=== PATIENT | male | born 1965 | race Caucasian/White ===

== ENCOUNTER 2019-11-15 19:10 | Emergency (ER) | payer SELFPAY ==
[~2019-11-15] VITALS: Ht 180.3 cm; Wt 85.7 kg
[2019-11-15 19:17] VITALS: BP 137/90
--- NOTE | 2019-11-15 19:19 | NUR ---
TO LOBBY A/W BED AMBULATORY
--- NOTE | 2019-11-15 20:10 | NUR ---
pt ambulated to bed 12
--- NOTE | 2019-11-15 20:24 | NUR ---
54 Y/O MALE PRESENTS TO ED, C/O LEFT SIDE TOOTHACHE. PT STATES PAIN STARTED 4 DAYS AGO, 8/10 PAIN SCALE; DOES NOT RADIATE. PT DENIES TAKING ANY MEDICATIONS PRIOR COMING TO ED. NO SOB/DIFFICULTY BREATHING NOTED. AIRWAY CLEAR. PT VSS. ERMD AWARE. WILL CONTINUE TO MONITOR.
[2019-11-15] MEDS ORDERED: MORPHINE SULFATE 2 MG/ML SYR IM ONE (20:55)
[2019-11-15] MEDS ORDERED: AMOXICILLIN 500 MG CAP PO ONE (20:55)
[2019-11-15 21:25] VITALS: BP 130/68
--- NOTE | 2019-11-15 21:25 | NUR ---
Patient discharged with v/s stable. Pt states pain relieved. Written and verbal after care instructions given and explained. Patient alert, oriented and verbalized understanding of instructions. Ambulatory with steady gait. All questions addressed prior to discharge. ID band removed. Patient advised to follow up with his Dentist and when to return to ER. Rx of Tramadol, Amoxicillin, and Motrin given. Patient educated on indication of medication including possible reaction and side effects. Opportunity to ask questions provided and answered.
== END 2019-11-15 21:25 | disposition home or self-care (01) ==
LOC: MED 19:10
DX: K04.7 Periapical abscess without sinus (principal)
CPT/HCPCS: 96372; 99283; J2270